=== PATIENT | female | born 1995 | race Caucasian/White ===

== ENCOUNTER 2016-07-02 17:05 | Emergency (ER) | payer SELFPAY ==
[~2016-07-02] VITALS: Ht 157.5 cm; Wt 52.0 kg
[2016-07-02 17:23] VITALS: Ht 157.5 cm; Wt 52.0 kg
== END 2016-07-03 00:26 | disposition left against medical advice (07) ==
LOC: FTE 17:05
DX: Z53.21 Procedure and treatment not carried out due to patient leaving prior to being seen by health care provider (principal)